=== PATIENT | female | born 1970 | race Caucasian/White ===

== ENCOUNTER 2017-12-23 04:17 | Emergency (ER) | payer SELFPAY ==
[2017-12-23] VITALS (7 sets, daily range): BP systolic 100–123; BP diastolic 62–84; PULSE 68–88; RESP 14–18; TEMP 36.8; O2SAT 95–98; BMI 35.5
--- NOTE | 2017-12-23 04:33 | RAD_ITS ---
STUDY: X-RAY CHEST REASON FOR EXAM: Female, 47 years old. Chest pain started at 12:30 last night, radiation to neck and left arm. TECHNIQUE: PA and lateral views of the chest. COMPARISON: 07/07/2014 FINDINGS: There are superimposed monitor leads. The lungs are clear and expanded. There is no demonstrated pleural abnormality. Normal size heart. Normal mediastinum and acleb. Normal visualized pulmonary arteries. Normal visualized aortic arch and descending thoracic aorta. Normal visualized thoracic spine. Normal visualized ribs, clavicles, and shoulders. There is no demonstrated abnormality of the visualized soft tissue structures of the upper abdomen. RAD/Chest PA and Lateral IMPRESSION: No acute cardiopulmonary disease. No significant interval change. Electronically Signed: Kelly Prasad MD at 5:04 EDT , Service support ,
--- NOTE | 2017-12-23 04:33 | EKG12_ITS ---
Test Reason : REPEAT-CP Blood Pressure : / mmHG Vent. Rate : 066 BPM Atrial Rate : 066 BPM P-R Int : 172 ms QRS Dur : 076 ms QT Int : 390 ms P-R-T Axes : 035 027 046 degrees QTc Int : 408 ms Sinus rhythm with Premature atrial complexes Otherwise normal ECG Confirmed by MARY US, ZOYA ([id number]), health editor YFN SOSA ([id number]) on 12/27/2017 1:46:23 PM Referred By: DAVID Confirmed By:ZOYA HERNANDEZ MD
--- NOTE | 2017-12-23 04:34 | ED.VISSUMM ---
- ER Visit Summary Date of Service: 12/23/17 Chief Complaint: Left sided chest pain History of Present Illness: The patient is a 47 F who presents for 4 hours of left-sided chest pain. Pain started at rest and is sharp, in the left upper chest radiating into the left neck. No history of injury or exertion. Pain has become more continuous and worse. It is worse with breathing or laying on the left side. Improved by remaining still. No associated nausea, vomiting, shortness of breath or fever. Patient has not had pain like this before. No history of coronary artery disease, DVT or PE. No recent travel or surgery. Patient is not a smoker. No hormone use. History of hysterectomy and partial thyroidectomy. Physical Examination: Vital signs: afebrile, hemodynamically stable, no hypoxia on room air General: well nourished, well developed, in no distress Skin: warm, dry, no rash, no pallor HEENT: normocephalic and atraumatic; PERRL, EOMI, moist mucous membranes Cardiovascular: regular rate and rhythm without murmurs, no peripheral edema, 2+ pulses all distal extremities Respiratory: No increased work of breathing, lungs are clear to auscultation bilaterally, no rales, rhonchi or wheezing Abdominal: Abdomen is soft, nontender with normoactive bowel sounds, no guarding or rebound, no masses MSK: Moves all extremities, no deformities, normal strength Neuro: Awake and alert, oriented ?4. No facial droop, sensation and motor function intact and symmetric Test Results: Abnormal Lab Results 12/23/17 12/23/17 12/23/17 04:30 04:30 04:30 WBC 8.3 RBC 5.12 Hgb 14.4 Hct 43.9 MCV 85.7 MCH 28.1 MCHC 32.8 RDW 13.1 RDW Differential 41.2 Plt Count 191 MPV 10.4 Immature Gran % (Auto) 0.200 Neut % (Auto) 57.0 Lymph % (Auto) 32.3 [place] % (Auto) 8.6 Eos % (Auto) 1.8 Baso % (Auto) 0.1 Absolute Neuts (auto) 4.7 Absolute Lymphs (auto) 2.69 Total Counted Not Reportable D-Dimer Quant (PE/DVT) 1.11 H* Sodium 142 Potassium 3.9 Chloride 108 H Carbon Dioxide 25.0 Anion Gap 9 BUN 15 Creatinine 0.95 Estim Creat Clear Calc 70.01 Est GFR (MDRD) Af Amer 82 Est GFR (MDRD) Non-Af 68 BUN/Creatinine Ratio 15.8 Glucose 90 Calcium 8.7 Troponin I < 0.02 Clinical Impression(s) from Imaging Studies Chest X-Ray 12/23/17 04:33 IMPRESSION: No acute cardiopulmonary disease. No significant interval change. Electronically Signed: Kelly Prasad MD at 5:04 EDT , Service support , Chest CTA 12/23/17 05:04 IMPRESSION: No demonstrated pulmonary embolism, aneurysm, leak or arterial dissection on submitted images with limitations as above. No pulmonary edema, congestive heart failure or confluent pneumonia. Nodular right thyroid lobe. This can be further assessed with ultrasound. Previous thyroid ultrasound 05/2013 describes a largest nodule of 1.1 x 0.9 x 0.6 cm. Electronically Signed: Kelly Prasad MD at 5:36 EDT , Service support , Emergency Department Course and Treatment: Patient presents with left-sided chest pain with no reproducible tenderness with palpation, no rash concerning for zoster. Because of the pleuritic nature of the pain, d-dimer was performed. Chest x-ray performed showing no infiltrates or acute process. EKG showed a sinus rhythm without ischemic changes and occasional PAC. Troponin negative. No leukocytosis or electrolyte derangements. D-dimer elevated at 1.11. CTA of the chest was performed, and showed no pulmonary emboli including in the main pulmonary arteries or the peripheral arteries, although the sensitivity of the study was limited due to suboptimal contrast bolus. She was given aspirin on initial presentation. Patient had been ordered morphine for her chest pain but declined it. On reevaluation, patient stated that the sharp pain had worsened, however she still did not want any pain medication. We discussed that her workup had thus been unremarkable. Patient agreed to a 3-hour delta EKG and troponin. Patient was still having intermittent chest pain and thus was given NTG which had no effect on her pain. Patient had improvement of her pain while waiting for the 3 hour delta troponin, with the pain becoming dull and moving into the lateral left chest/axilla. No other symptoms. Second EKG was unchanged from the first 1, showing a sinus rhythm with no ischemic changes. Discussed with patient that if the troponin was negative, the patient would have less than 1% risk of major adverse cardiovascular event in the next 30 days. Patient will be discharged home if the troponin is negative. We discussed the anti-inflammatories would be the best treatment for her chest pain if no concerning findings on the troponin. Patient agreed with this plan. Troponin will be followed up by the day physician and final disposition pending result. Treatment Plan: [] Disposition: [] Impression: left sided chest pain This note was generated with [employer] dictation software. It may contain incorrect words, spelling, and punctuation that were not noted in review of the chart prior to signing ED Disposition - Plan for ED Patient: Chief Complaint: Chest Pain Referrals: Care Physician,No Primary [Primary Care Provider] -
[2017-12-23] MEDS: Aspirin 81 MG TAB.CHEW 324 MG PO (04:41)
[2017-12-23 04:52] LABS: Absolute Lymphocyte Count 2.69 X10^3/ul (0.83-4.51); Absolute Neutrophil Count 4.7 X10^3/uL (2.0-7.7); Basophil# 0.01 X10^3/uL; Basophil% 0.1 % (0-1); Eosinophil# 0.15 X10^3/uL; Eosinophils% 1.8 % (0-5); Hematocrit 43.9 % (37-47); Hemoglobin 14.4 g/dl (12.0-15.0); Lymphocyte # 2.69 X10^3/ul (4.0); Lymphocyte % 32.3 % (19-41); Mean Corp Hgb Conc 32.8 g/gl (32-36); Mean Corpuscular Hgb 28.1 pg (27.0-32.0); Mean Corpuscular Volume 85.7 fL (81-99); Mean Platelet Vol. 10.4 fl (6.2-12.0); Monocyte# 0.72 X10^3/uL; Monocyte% 8.6 % (0-10); Neutrophil # 4.74 X10^3/uL (2.7-7.7); Platelet Count 191 K/mm3 (150-450); RBC Distribution Width CV 13.1 % (11.6-14.6); RBC Distribution Width SD 41.2 fl (35.1-43.9); Red Blood Count 5.12 M/mm3 (4.2-5.4); White Blood Count 8.3 K/mm3 (4.4-11.0)
[2017-12-23 04:54] LABS: Anion Gap 9 (5-15); BUN 15 mg/dL (7-18); BUN/Creat Ratio 15.8 RATIO (10-20); Calcium,Total 8.7 mg/dL (8.5-10.1); Chloride 108 mmol/L (98-107); Creatinine, Serum 0.95 mg/dL (0.55-1.02); EST Glomerular Filtration Rate 68 mL/min (>60); Est Glom Filt Rate - Afr Amer 82 mL/min (>60); Estimated Creatinine Clearance 70.01 ml/min; Glucose 90 mg/dL (74-106); Potassium 3.9 mmol/L (3.5-5.1); Sodium Level 142 mmol/L (136-145)
[2017-12-23 04:56] LABS: POSITIVE COUNT NO; POSITIVE DIFFERENTIAL NO; POSITIVE MORPHOLOGY NO
[2017-12-23 05:03] LABS: D-Dimer Quantitative (DVT/PE) 1.11 FEU/ug/m (0.27-0.49)
--- NOTE | 2017-12-23 05:03 | ED.RN ---
LAB CALLED WITH CRITICAL LAB RESULTS. D DIMER .. DR. HERNANDEZ MADE AWARE. ORDERS TO BE PLACED
--- NOTE | 2017-12-23 05:04 | CT_ITS ---
STUDY: CTA CHEST REASON FOR EXAM: Female, 47 years old. Elevated d-dimer, chest pain since 12:30 with radiation to neck and left arm. RADIATION DOSAGE (If Supplied By Facility): CTDIvol = ( 8.38 ) mGy, DLP = ( 298.89 ) mGycm TECHNIQUE: The examination was performed with the intravenous administration of 100 ml of Isovue 370 contrast material. Post-processing of the angiographic images was performed, with multiplanar reformation and 3D reconstruction. Individualized dose optimization techniques were used for this CT. COMPARISON: X-ray 12/23/2017. 07/07/2014. FINDINGS: Nodular low-attenuations right thyroid lobe, largest measures 1.6 x 1.6 cm image 211 series 2. Left thyroid lobe is not visualized. Images obtained during systemic arterial carotid and pulmonary arterial assessment limiting the sensitivity for pulmonary embolic detection. Normal enhancement of the main pulmonary artery and right and left pulmonary arteries. Normal enhancement of the bilateral peripheral pulmonary arteries. There is no demonstrated pulmonary embolism. Normal thoracic aorta and visualized great vessels. There is no demonstrated aortic dissection. Normal heart and pericardium. Normal mediastinum. Normal hilar regions. Normal visualized trachea and bronchi. The lungs are well expanded. Normal pulmonary parenchyma. Normal pleura. Normal chest wall structures. Age-appropriate osseous structures. Normal visualized upper abdomen. CT/CTA Chest W/WO Contrast IMPRESSION: No demonstrated pulmonary embolism, aneurysm, leak or arterial dissection on submitted images with limitations as above. No pulmonary edema, congestive heart failure or confluent pneumonia. Nodular right thyroid lobe. This can be further assessed with ultrasound. Previous thyroid ultrasound 05/2013 describes a largest nodule of 1.1 x 0.9 x 0.6 cm. Electronically Signed: Kelly Prasad MD at 5:36 EDT , Service support ,
[2017-12-23] MEDS: 0.9% Normal Saline 1,000 ML 999 ML IV (06:10)
--- NOTE | 2017-12-23 07:22 | EKG12_ITS ---
Test Reason : CHEST PAIN Blood Pressure : / mmHG Vent. Rate : 082 BPM Atrial Rate : 082 BPM P-R Int : 156 ms QRS Dur : 076 ms QT Int : 374 ms P-R-T Axes : 047 028 038 degrees QTc Int : 436 ms Sinus rhythm with Premature atrial complexes Otherwise normal ECG Confirmed by MARY US, ZOYA ([id number]), editor news YFN SOSA ([id number]) on 12/27/2017 1:46:35 PM Referred By: DAVID Confirmed By:ZOYA HERNANDEZ MD
--- NOTE | 2017-12-23 07:38 | ED.DEP ---
ED Disposition - Plan for ED Patient: Disposition: Home or Assisted Living Chief Complaint: Chest Pain Instructions: ED Chest Pain Atypical Unkn Cause Referrals: Care Physician,No Primary [Primary Care Provider] - Kirti Zavala MD [STAFF PHYSICIAN] - 1-2 Days if not improving Additional Instructions: You may use over the counter anti-inflammatories such as ibuprofen or naproxen as needed for chest pain. Please follow up with the doctor on this paperwork to establish primary care. If you have any worsening of your condition or any new concerning symptoms, please return immediately to the emergency department for another evaluation.
== END 2017-12-23 08:52 | disposition home or self-care (01) ==
PROVIDERS: Emergency Provider Emergency Medicine
DX: R07.9 Chest pain, unspecified (principal); E04.1 Nontoxic single thyroid nodule; I49.3 Ventricular premature depolarization; R79.89 Other specified abnormal findings of blood chemistry; Z90.89 Acquired absence of other organs; Z90.710 Acquired absence of both cervix and uterus
CPT/HCPCS: 71046; 71275; 80048; 84484; 85025; 85379; 93005; 96360; 96361; 99285; J7030; Q9967; A4216

== ENCOUNTER → 2018-08-26 07:42 | Outpatient (CLI) | payer OTHER, SELFPAY ==
[2017-12-23 04:18] VITALS: BMI 35.5
--- NOTE | 2018-08-26 07:49 | US_ITS ---
STUDY: THYROID ULTRASOUND REASON FOR EXAM: Female, 47 years old. Left thyroidectomy, right thyroid nodule follow-up TECHNIQUE: Ultrasound evaluation of the thyroid was performed with real-time and static smiley-scale imaging. COMPARISON: 09/03/2017 FINDINGS: RIGHT LOBE: The right lobe of the thyroid gland measures 6.6 x 2.5 x 1.6 cm. There is a heterogeneous echotexture. Diffuse heterogeneity of the right thyroid lobe with multiple hypoechoic nodules identified. Some of the nodules demonstrate cystic transformation. The largest cystic nodule measures 2.9 x 1.3 x 1.9 cm and previously measured 2.4 x 2.1 x 1.4 cm. Nodule has eccentric, mural nodularity with vascular flow. There is also increased size of cystic/solid nodule in the deep mid right thyroid lobe measuring 1.2 x 1.5 x 1.0 cm where as in the prior study measured 1.0 x 1.2 x 0.7 cm. Additional smaller nodules are similar in size and appearance when measured in a similar fashion on both studies and compared side by side. LEFT LOBE: Surgically absent. ISTHMUS: The isthmus measures 3 mm. The regional lymph nodes are normal. US/Thyroid IMPRESSION: 1. Left thyroidectomy. 2. Multiple right thyroid lobe nodules. INCREASED size of dominant solid/cystic nodules, as compared to prior study. Electronically Signed: Simón Goyal MD at 7:39 EST , Service support ,
== END ==
PROVIDERS: Referring Provider Surgery; Visit Provider Surgery
DX: E04.1 Nontoxic single thyroid nodule (principal)
CPT/HCPCS: 76536

== ENCOUNTER → 2018-09-16 11:10 | Outpatient (CLI) | payer OTHER, SELFPAY ==
[2018-08-30 07:59] VITALS: BMI 35.5
--- NOTE | 2018-09-16 11:12 | RAD_ITS ---
HISTORY: PAIN COMPARISON: None FINDINGS: XR left knee 4 views with weightbearing No fracture or acute osseous abnormality. Minor narrowing of the tibiofemoral medial compartment. The lateral joint space compartment and patellofemoral joint space appear preserved. Small fabella. No bony erosions. Small effusion. RAD/Knee 4 or More Views IMPRESSION: Left knee small effusion with minor narrowing of the medial compartment. Otherwise negative. at 0412 Reported and signed by: Blaise Inman MD Electronically Signed: Blaise Inman, at 4:11 EST Tel , Service support ,
--- NOTE | 2018-09-16 11:12 | RAD_ITS ---
HISTORY: PAIN COMPARISON: None FINDINGS: XR 4 views right knee with weightbearing No fracture or acute disease. Normal alignment. Minor narrowing of the tibiofemoral medial compartment the lateral joint space compartment and patellofemoral joint space appears preserved. No joint effusion. As visualized, the soft tissues are negative. RAD/Knee 4 or More Views IMPRESSION: 1. Minor narrowing of the medial compartment, right knee. Otherwise negative exam. No significant arthritis. at 0415 Reported and signed by: Blaise Inman MD Electronically Signed: Blaise Inman, at 4:14 EST Tel , Service support ,
== END ==
LOC: HPRAD 11:11
PROVIDERS: Referring Provider Physician Assistant; Visit Provider Physician Assistant
DX: M25.561 Pain in right knee (principal); M25.562 Pain in left knee
CPT/HCPCS: 73564

== ENCOUNTER → 2018-11-24 12:06 | Outpatient (CLI) | payer OTHER, SELFPAY ==
[2018-09-19 08:44] VITALS: BMI 35.5
--- NOTE | 2018-11-24 12:08 | BI_ITS ---
MAMMOGRAPHY - BILATERAL SCREENING REASON FOR EXAM: Female, 48 years old. Routine annual screening examination. PERTINENT HISTORY: Non-contributory. TECHNIQUE: Digital bilateral breast kylie (3D mammographic acquisition) in the CC and MLO projections. 2-D mediolateral oblique (MLO) and craniocaudad (CC) views of both breasts were obtained. CAD: Full Field Digital Mammography with Computer Added Detection was performed. COMPARISON: Comparison is made with prior study dated October 19, 2016 and October 21, 2015. FINDINGS: Breast Composition: There are scattered areas of fibroglandular density. There are no dominant masses or suspicious calcifications. No other significant abnormalities are identified. There has been no significant change since the prior study. BI/SCREENING MAMM (CAD), BILAT IMPRESSION: Stable bilateral screening mammogram. Yearly follow-up mammogram recommended. (A) ASSESSMENT CATEGORY: BIRADS Category 1: Negative. A letter regarding these results will be sent to the patient by the facility within 30 days. Approximately 10% of breast cancers are not detected by mammography. A normal mammogram should not delay biopsy of a clinically suspicious abnormality. [id number] Electronically Signed: Oz Osullivan, at 13:27 EDT , Service support ,
== END ==
PROVIDERS: Referring Provider Obstetrics & Gynecology; Visit Provider Obstetrics & Gynecology
DX: Z12.31 Encounter for screening mammogram for malignant neoplasm of breast (principal)
CPT/HCPCS: 77063; 77067

== ENCOUNTER → 2020-03-12 07:51 | Outpatient (CLI) | payer BC, SELFPAY ==
[2019-10-13 08:40] VITALS: BMI 35.5
--- NOTE | 2020-03-12 07:55 | US_ITS ---
STUDY: THYROID ULTRASOUND REASON FOR EXAM: Female, 49 years old. History of left thyroidectomy, known nodules, follow-up study TECHNIQUE: Ultrasound evaluation of the thyroid was performed with real-time and static smiley-scale imaging. COMPARISON: Multiple recent studies, the most recent from 08/26/2018 FINDINGS: RIGHT LOBE: The right lobe of the thyroid gland measures 7.5 x 2.8 x 2.2 cm. There is a heterogeneous echotexture. Stable simple and complex cysts noted in the right lobe largest of them measure 1.0 x 1.5 x 0.7 cm. LEFT LOBE: Surgically absent ISTHMUS: The isthmus measures 0.6 cm. There is a solid 1.1 x 1.1 x 0.7 cm hypoechoic nodule in the isthmus which is new since the previous study. Since this nodule is new since the previous study, further evaluation with thyroid uptake study is recommended to assess the uptake characteristics. The regional lymph nodes are normal. US/Thyroid IMPRESSION: New 1.1 x 1.1 x 0.7 cm solid hypoechoic isthmus nodule. Recommend thyroid uptake study to assess uptake characteristics. Stable enlarged right thyroid lobe with multiple stable simple and complex cystic nodules. Electronically Signed: Kurtis Le MD at 11:07 EDT , Service support ,
== END ==
PROVIDERS: Referring Provider Surgery; Visit Provider Surgery
DX: E04.2 Nontoxic multinodular goiter (principal)
CPT/HCPCS: 76536

== ENCOUNTER → 2020-07-10 | Outpatient (CLI) | payer BC, SELFPAY | END | disposition home or self-care (01) | LOC: LABSPEC 10:24 | PROVIDERS: Referring Provider Physician Assistant Surgical; Visit Provider Physician Assistant Surgical | DX: Z20.828 Contact with and (suspected) exposure to other viral communicable diseases (principal) | CPT/HCPCS: 87635; U0003 ==

== ENCOUNTER 2020-08-26 13:00 | Outpatient (RCR) | payer BC, SELFPAY ==
[2020-03-15 13:56] VITALS: BMI 35.5
--- NOTE | 2020-07-08 08:54 | HP.PTEVAL_ITS ---
Patient's Visit Information CARLOS MANUEL CARSON is a 49 year old F referred to Physical Therapy by Dr. Rafa Young MD with a diagnosis of DJD B Knees. Date of Evaluation: 07/08/20 Physical Therapist: Rashawn Sullivan, FINAT, OCS, CSCS - Visit Plan Frequency: 2x /Week Duration: 2-4 Weeks Plan: 2x/week for 4 weeks for start with aquatic therapy for B hip and knee strength and quad stretching progressing to I pool or home strenghening and stretching ex program depending on patients needs and desires. - Subjective Knee pain long standing but worse and it is keeping her up at night in L knee but both hurt. L knee to 10/10 sometimes with walking and a little bit at rest usually. R knee is comfortable and gets to 4/10 with bending it under crease. Sleep is interrupted. Wakes her up and is uncomfortable. Tylenol at night sometimes. 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 Sits during day mostly and on feet for a few hours at night before bedtime. Knees are uncomfortable but can do what she needs to at work. Live with sons in one story with two steps into from garage and can do them holding onto sides. Basic ADLs getting done, hurts. No real hobbies. No regular exercises outside of walking which hurts L knee. - Pain L knee Pain Intensity (Out of 10): 4 Pain Intensity Range: 0, 4, 10 - Objective Walks I with obvious L antalgia today, mild pain. Steps reciprocally needing railing up and down. Trasnfers I. Patella stiff B, quad very tight B qith 3 inches from buttock in prone and pain at end range. AROM B knees 110 flexion with end range pain. 0 ext B. reflexes 2/3 patella and achilles B. Sensation LE WNL to gross light touch. Strength hip rotations and abd and ext 3/5, flexi on 3+, knee ext 4- and HSC 4/5. ankle MMT 4/5 without pain. - B bounce home, + L patellar grind, + L knee scour. Tender to palpation medial joint line max on L and min on R at both knees. - Goals Goal 1:: Patient have pain 0-2/10 at most in B knees and tolerable to sleep through the night. Goal 2:: Pt score 50/80 on LEFS to minimize future problems and maximize mobility Goal Time Frame: 4-6 Weeks Goal 3:: I approp HEP to minimize future problems. Goal Time Frame: 4-6 Weeks - Rehabilitation Potential Physical Therapy Diagnosis: DJD B Knees Rehabilitation Potential: Fair - Anticipated Interventions Patient/Client Instruction: Educate patient on: Condition, Plan of Care For the Purpose of:: To decrease pain, To improve muscle performance and motor function, To improve ability of physical actions for home/community/work/leisure, To improve gait and locomotor functions Therapeutic Exercise to Include: Strength training, Flexibilty training, Neuromotor development, In an aquatic setting, Passive ROM, Active ROM For the Purpose of:: To decrease pain, To improve muscle performance and motor function, To increase tolerance to activity/condition/position, To improve ability of physical actions for home/community/work/leisure Manual Therapy Techniques to Include: Soft tissue mobilization For the Purpose of:: To decrease pain, To increase ROM Thank you for the opportunity to evaluate your patient. For Medicare and Medicare HMO plans, please review the plan of care and approve it. It will need to be FAXED BACK to us at [phone] for Medicare purposes. For Medicare only, by signing this I certify the plan of care. Please let me know if there are questions or concerns regarding this plan of care. Physician Signature: Date:
--- NOTE | 2020-08-09 10:51 | HP.PTREVAL ---
Dr. Rafa Young MD, It has been my pleasure to treat CARLOS MANUEL CARSON over the last 4 visits for DJD B Knees. Please see the progress note below for an update on the physical therapy plan of care! Subjective: Hard time getting into PT due to work schedule. Trying to do pool stuff at home. Not feeling much different. Pain this week to 10/10 with lying in bed inside of L knee and posterior R knee. To doctor in August. Work schedule is getting in way of treatment, works 9-5 and cannot get off. 3 visits in water were OK, flet the same but learned alot. Pt wants reschedule Objective/Function: pt apologetic for missing appointments but believes she can be more consistent over the next two weeks and then will join and continue I. Plan Plan: 2x/week for 2 weeks to [place] POC of LE strength, calorie burning, gneeral strength in the pool and progress to membership via open swim after 4 visits with list. Extending POC due to lack of attendance lately by two weeks with same goals and prognosis. Goals Goal 1:: Patient have pain 0-2/10 at most in B knees and tolerable to sleep through the night. Goal 2:: Pt score 50/80 on LEFS to minimize future problems and maximize mobility Goal Time Frame: 4-6 Weeks Goal 3:: I approp HEP to minimize future problems. Goal Time Frame: 4-6 Weeks Anticipated Interventions Patient/Client Instruction: Educate patient on: Condition, Plan of Care For the Purpose of:: To decrease pain, To improve muscle performance and motor function, To improve ability of physical actions for home/community/work/leisure, To improve gait and locomotor functions Therapeutic Exercise to Include: Strength training, Flexibilty training, Neuromotor development, In an aquatic setting, Passive ROM, Active ROM For the Purpose of:: To decrease pain, To improve muscle performance and motor function, To increase tolerance to activity/condition/position, To improve ability of physical actions for home/community/work/leisure Manual Therapy Techniques to Include: Soft tissue mobilization For the Purpose of:: To decrease pain, To increase ROM Please do not hesitate to contact me at [phone] by phone or if you have questions or concerns regarding this new plan of care! Sincerely, Rashawn Sullivan, DPT, OCS, CSCS
--- NOTE | 2020-08-26 13:27 | HP.PTDCSUM_ITS ---
It has been my pleasure to treat CARLOS MANUEL CARSON referred by Dr. Rafa Young MD, with the diagnosis of DJD B Knees for a total of 9 visit(s). Discharge Date: 08/26/20 Please see the following information for a summary of their discharge status. Subjective: Going OK. Not feeling much better overall. [place] pretty good after having two days in a row having less pain and limping less. The weekend was not bad. Normal pain is 4-10/10. Sleeps normal 8 hours on weekend but has 5/10 pain. Sleep is OK. Back to doctor on Wednesday morning. May try gel injections. May need surgery eventually. Wants to follow up with doctor and do water therapy on own for next 6 months and see how it goes. Knows the water ex and can continue on her own. L knee Pain Intensity (Out of 10): 0 RLE Pain Intensity (Out of 10): 0 LLE Pain Intensity (Out of 10): 0 % Improvement: 30 Objective/Function: ROM B knees WFL, strength 4/5 knee ext B with R knee pain. Steps are reciprocal with one rail without limping. Pt doing well. Pt still has pain daily and will discuss this with doctor but feels like she wants to try adn manage it (4-10/10) with water ex I vs further doctoring. Goal 1:: Patient have pain 0-2/10 at most in B knees and tolerable to sleep through the night. Goal Progress: Progressing Goal 2:: Pt score 50/80 on LEFS to minimize future problems and maximize mobility Goal Progress: Progressing Goal 3:: I approp HEP to minimize future problems. Goal Progress: Goal Met Plan: d/c to I water membership to continue 3x/week. Discharge Comments: Pt to [facility] via membership in the pool. If there are questions or concerns regarding this patient's physical therapy, please feel free to call me at [phone]. Thank you for the referral of this patient. Sincerely, Rashawn Sullivan, DPT, OCS, CSCS
== END 2020-08-26 19:00 | disposition home or self-care (01) ==
LOC: PT 13:00
PROVIDERS: Referring Provider Orthopaedic Surgery; Visit Provider Orthopaedic Surgery
DX: M17.0 Bilateral primary osteoarthritis of knee (principal)
CPT/HCPCS: 97113; 97161; 97164

== ENCOUNTER → 2020-12-03 12:05 | Outpatient (CLI) | payer BC, SELFPAY ==
[2020-11-04 11:29] VITALS: BMI 39.4
--- NOTE | 2020-12-02 09:15 | ASPSI_PTH ---
PATIENT: CARLOS MANUEL CARSON LOC: [facility] U#:[id number] AGE/SX: 54/F ROOM: RE12/03/[address]: Dr. Anthony Kent MD : 1970 BED: DIS: SPEC #: [id number] RECD: 12/03/20 11:47 STATUS: ÁNGELA REDereck #: [id number] CHANELLE: 12/02/20 09:[address]: Anthony Kent DEPT: CYTOLOGY RECD BY: Arleth Salazar ENTERED: 12/03/20 13:03 SP TYPE: KAYLA KRUSE DR: Dr. Ernestina Santo, Tissues: A - Thyroid gland, NOS B - Thyroid gland, NOS Procedures: Surgery Specimen Level IV Cytospin Fluid Cytology Other HEADER OPERATION: Ultrasound-guided fine needle aspiration of right thyroid and right thyroid cyst aspiration PRE-OP DIAGNOSIS: Thyroid nodule TISSUE SUBMITTED: A - Right thyroid FNA x12 slides, B - Right thyroid cyst aspirate DIAGNOSIS CYTOLOGY A. Right thyroid, ultrasound-guided FNA (smears): Consistent with benign follicular/colloid nodule with cystic changes. Adequate for evaluation. See comment. B. Right thyroid cyst fluid, ultrasound-guided FNA (cytospin and cell block): Consistent with benign cyst contents. See cytology study and comment. SJ:rg 12/04/2020 COMMENT Correlation with clinical, radiologic findings and appropriate follow up are necessary. Please make reference to previous specimens ([id number]) FNA, right thyroid nodule with diagnosis of negative, consistent with colloid nodule and FNA, right thyroid isthmus with diagnosis of negative, consistent with cystic colloid nodule and ([id number]) FNA, right thyroid nodule with diagnosis of negative, consistent with colloid nodule and chronic inflammation. CYTOLOGY STUDY Slides are reviewed. B. The specimen consists of numerous macrophages and a few clusters of benign follicular cells. CYTOLOGY GROSS A - Received are 12 smears labeled with the patient's name and designated per the requisition as right thyroid. Submitted for staining. B - Received is 50 ml of brown cloudy fluid labeled with the patient's name and and designated per the requisition as right thyroid cyst. Submitted for cytology preparation including cell block. / isha 12/03/20 TC:5 CPT: 10012, 86485, 98963
== END ==
LOC: LABSPEC 12:08
PROVIDERS: PCP Internal Medicine; Referring Provider Surgery; Visit Provider Surgery
DX: E04.1 Nontoxic single thyroid nodule (principal)
CPT/HCPCS: 88108; 88161; 88305

== ENCOUNTER → 2021-05-02 | Outpatient (CLI) | payer BC, SELFPAY | END | disposition home or self-care (01) | LOC: LABSPEC 10:09 | PROVIDERS: PCP Internal Medicine; Visit Provider Physician Assistant Surgical | DX: Z20.822 Contact with and (suspected) exposure to COVID-19 (principal) | CPT/HCPCS: 87635; U0005; U0003 ==

== ENCOUNTER 2023-03-27 11:52 | Emergency (ER) | payer OTHER, SELFPAY ==
[2023-03-27 11:53] VITALS: BP 134/77; PULSE 76; RESP 14; TEMP 36.6; O2SAT 96; BMI 40.4
--- NOTE | 2023-03-27 12:03 | CT_ITS ---
STUDY: CT ABDOMEN AND PELVIS WITHOUT CONTRAST REASON FOR EXAM: Female, 52 years old. Right flank pain RADIATION DOSAGE (If Supplied By Facility): CTDIvol = ( 19.78 ) mGy, DLP = ( 978.32 ) mGycm TECHNIQUE: Transaxial images were obtained from the dome of the diaphragm to the symphysis pubis without oral contrast, and without intravenous contrast. Sagittal and coronal images were reconstructed. Individualized dose optimization techniques were used for this CT. COMPARISON: 2010 FINDINGS: The visualized lung bases are unremarkable. The visualized portions of the heart are within normal limits. Normal liver. Normal gallbladder and extrahepatic biliary system. Normal spleen. Normal pancreas. Normal bilateral adrenal glands. There is right-sided hydronephrosis and hydroureter. Findings due to a 3.4 mm stone in the proximal right ureter seen on axial image 82, and coronal reconstructed image 61. There are punctate nonobstructing right renal stones. No suspicious mass lesion. Left kidney is free of obstructive uropathy or mass lesion. Normal visualized stomach. Normal small intestine. Normal colon. The appendix is visualized and appears normal. Appendix seen on coronal recon images 45 through 56 Normal abdominal aorta. Normal inferior vena cava. Normal retroperitoneum. Bladder is incompletely distended Normal abdominal wall. Normal osseous structures. CT/Abdomen/Pelvis without Cont IMPRESSION: 3.4 cm calcification in the proximal right ureter causing hydronephrosis and hydroureter without significant perinephric or periureteral inflammatory stranding Punctate nonobstructing right renal stones No free intraperitoneal fluid, air, or suspicious adenopathy, normal appendix visualized Electronically Signed: Kurtis Le MD at 13:15 EDT ,
--- NOTE | 2023-03-27 12:05 | EX.ED.DYSGE1 ---
HPI <REYNALDO Weinberg - Last Filed: 03/27/23 13:24> History of Present Illness Chief Complaint: Back Narrative Narrative: 52-year-old female developed right lower quadrant abdominal pain this morning. 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 However then the pain started radiating to the right flank and became more severe. Nothing makes it better or worse. She has no fever, chills, nausea, vomiting, or urinary symptoms. She has a normal daily bowel movement. No history of kidney stones. PFSH <REYNALDO Weinberg - Last Filed: 03/27/23 13:24> PFS Medical History (Updated 04/04/23 @ 00:01 by Ahmet Pool) Hypothyroid Physical exam, pre-employment Home Medications naproxen 500 mg tablet (Naprosyn) 500 mg PO BID PRN pain #20 tabs 03/27/23 [Rx Last Taken Unknown] ondansetron 4 mg disintegrating tablet 4 mg PO Q8H PRN PRN Nausea #12 tabs 03/27/23 [Rx Last Taken Unknown] oxycodone-acetaminophen 5 mg-325 mg tablet (Percocet) 1 tab PO Q6H PRN pain 3 days #12 tabs 03/27/23 [Rx Last Taken Unknown] tamsulosin 0.4 mg capsule (Flomax) 0.4 mg PO DAILY #7 caps 03/27/23 [Rx Last Taken Unknown] Allergy/AdvReac Type Severity Reaction Status Date / Time No Known Allergies Allergy Verified 03/27/23 11:53 Surgical History History of hysterectomy History of partial thyroidectomy Social History (Updated 03/27/23 @ 12:18 by Maine Ybarra) household members: family Smoking Status: Never smoker alcohol intake: never substance use type: does not use ROS <REYNALDO Weinberg - Last Filed: 03/27/23 13:24> ROS ED ROS Narrative Constitutional: Negative for fever, chills, malaise. CVS: Negative for chest pain. Respiratory: Negative for shortness of breath, cough. GI: Positive for abdominal pain. Negative for nausea, vomiting, diarrhea, constipation, melena, hematochezia. : Negative for dysuria, hematuria or frequency. EXAM <REYNALDO Weinberg - Last Filed: 03/27/23 13:24> Physical Exam Narrative Exam Narrative: CONST: Patient sitting in no acute distress. EYES: Normal inspection. NECK: Normal inspection. RESP: No respiratory distress, CTAB. CVS: Regular rate and rhythm, no murmur, no gallop. ABD: Soft and nontender, no guarding or rebound, nondistended, no hepatosplenomegaly. Back: Normal inspection, mild right CVA tenderness. SKIN: Color normal, no rash, warm, dry, intact. EXTREMITIES: Normal appearance, no pedal edema. NEURO: Oriented x4. PSYCH: Normal affect. Const Vital Signs: 03/27/23 11:53 Temperature 97.8 F Temperature Source Temporal Pulse Rate 76 Respiratory Rate 14 Blood Pressure 134/77 H Blood Pressure Mean 96 Pulse Ox 96 Oxygen Delivery Method Room Air <Dr. Jyoti Peraza DO - Last Filed: 05/23/23 08:28> Physical Exam Const Vital Signs: 03/27/23 11:53 Temperature 97.8 F Temperature Source Temporal Pulse Rate 76 Respiratory Rate 14 Blood Pressure 134/77 H Blood Pressure Mean 96 Pulse Ox 96 Oxygen Delivery Method Room Air MDM <REYNALDO Weinberg - Last Filed: 03/27/23 13:24> MDM MDM Narrative Medical decision making narrative: Patient has right flank pain radiating to the RLQ abdomen. She appears well and nontoxic. Vital signs within normal limits. Her abdomen is soft and nontender and there is slight right CVA tenderness. Labs show normal white count and hemoglobin, normal electrolytes with creatinine of 1.04. Urinalysis shows blood and nitrite positive but there is no bacteria and she has no urinary symptoms so it will be cultured but there is no indication for acute antibiotics. CT shows right obstructive kidney stone approximately 3 to 4 mm with hydronephrosis. Report incorrectly stated centimeters but it's millimeters. Patient's pain is well controlled after 1 dose of Toradol she has comfortable going home. I prescribed Percocet, naproxen, Zofran, and Flomax and discussed return precautions. She was discharged in stable condition. ED attending interpretation of CT abdomen/pelvis shows a small obstructive kidney stone in the right proximal ureter with no significant hydronephrosis. Differential: Kidney stone, pyelonephritis, appendicitis, ovarian cyst among others I have personally performed a face to face assessment of the patient and have reviewed the TATI Note. I performed a substantive portion of the visit including all aspects of the following. My ortiz findings include: History is [patient presents to the emergency department complaint of pain that initially started in her right lower abdomen but now is more in her back on the right side. Patient states that she only has 1 ovary and that is on her right side when she ovulates sometimes she will have pain and initially that is what she thought this was. Now pain rated 7 out of 10 in her right back. She denies urinary symptoms of frequency or urgency. She denies hematuria. Patient denies any trauma to her back. She had no nausea or vomiting.] Exam is [CELSA HERNANDEZ. Cranial nerves II through XII grossly intact. TMs clear. Mucous membranes moist. No adenopathy. Cardiovascular-regular rate and rhythm without murmur or ectopy Lungs-clear to auscultation, chest wall stable without crepitus or subcu emphysema Abdomen-normoactive bowel sounds, soft, nontender, no rebound or rigidity, no peritoneal signs. Back exam-patient has CVA tenderness on the right. Negative straight leg raises. Deep tendon reflexes plus 2 out of 4 bilaterally at the patella and Achilles. Patient has normal L5 extension bilaterally. Normal sensation to light touch. Extremities-intact ?4, normal range of motion, normal pulses, atraumatic] Medical Decison Making [on my evaluation of the CT scan I do see a kidney stone in the right ureter proximally measuring approximately 2 mm. Patient's urine had blood in it but no other signs of infection although she was positive for nitrites. Urine culture was sent. We will not treat this as she is not having urinary symptoms otherwise. Patient will be discharged to home with urine strainers. Patient will be given a prescription for Naprosyn and [place]. Advised to follow-up with urology in 3 to 5 days. Patient advised to return if worsening pain, fever, vomiting, or condition should worsen anyway.] Other additions or changes: [None] Lab Data Attestation: I reviewed the patient's lab results. Labs: Laboratory Results - last 24 hr 03/27/23 03/27/23 12:20 12:54 WBC 9.4 RBC 5.27 Hgb 14.5 Hct 45.3 MCV 86.0 MCH 27.5 MCHC 32.0 RDW Std Deviation 39.6 RDW Coeff of Jayy 12.7 Plt Count 256 MPV 10.3 Immature Gran % (Auto) 0.300 Neut % (Auto) 72.3 H Lymph % (Auto) 19.3 [place] % (Auto) 6.6 Eos % (Auto) 1.2 Baso % (Auto) 0.3 Absolute Neuts (auto) 6.8 Absolute Lymphs (auto) 1.81 Nucleated RBC % 0 Sodium 139 Potassium 4.1 Chloride 107 Carbon Dioxide 28.0 Anion Gap 4 L BUN 14 Creatinine 1.04 H Estim Creat Clear Calc 60.58 Est GFR (MDRD) Af Amer 72 Est GFR (MDRD) Non-Af 60 BUN/Creatinine Ratio 13.5 Glucose 112 H Calcium 9.0 Urine Color Brown Urine Clarity Cloudy Urine pH 5.0 Ur Specific [place] 1.025 Urine Protein 100 H Urine Glucose (UA) Normal Urine Ketones 5 H Urine Occult Blood 250 H Urine Nitrite Positive H Urine Bilirubin 1 H Urine Urobilinogen 1 H Ur Leukocyte Esterase 100 H Urine RBC > 100 SEEN Urine WBC 0-5 SEEN Ur Squamous Epith Cells 0-5 SEEN Urine Bacteria 0 SEEN Urine Mucus 0 SEEN Radiography Diagnostic Testing: Clinical Impression(s) from Imaging Studies Abdomen/Pelvis CT 03/27/23 12:03 IMPRESSION: 3.4 cm calcification in the proximal right ureter causing hydronephrosis and hydroureter without significant perinephric or periureteral inflammatory stranding Punctate nonobstructing right renal stones No free intraperitoneal fluid, air, or suspicious adenopathy, normal appendix visualized Electronically Signed: Kurtis Le MD at 13:15 EDT , <Dr. Jyoti Peraza, DO - Last Filed: 05/23/23 08:28> [facility] Narrative Medical decision making narrative: Patient has right flank pain radiating to the RLQ abdomen. She appears well and nontoxic. Vital signs within normal limits. Her abdomen is soft and nontender and there is slight right CVA tenderness. Labs show normal white count and hemoglobin, normal electrolytes with creatinine of 1.04. Urinalysis ED attending interpretation of CT abdomen/pelvis shows a small obstructive kidney stone in the right proximal ureter with no significant hydronephrosis. Differential: Kidney stone, pyelonephritis, appendicitis, ovarian cyst among others I have personally performed a face to face assessment of the patient and have reviewed the TATI Note. I performed a substantive portion of the visit including all aspects of the following. My ortiz findings include: History is [patient presents to the emergency department complaint of pain that initially started in her right lower abdomen but now is more in her back on the right side. Patient states that she only has 1 ovary and that is on her right side when she ovulates sometimes she will have pain and initially that is what she thought this was. Now pain rated 7 out of 10 in her right back. She denies urinary symptoms of frequency or urgency. She denies hematuria. Patient denies any trauma to her back. She had no nausea or vomiting.] Exam is [HEENT-PERRLA, EOMI. Cranial nerves II through XII grossly intact. TMs clear. Mucous membranes moist. No adenopathy. Cardiovascular-regular rate and rhythm without murmur or ectopy Lungs-clear to auscultation, chest wall stable without crepitus or subcu emphysema Abdomen-normoactive bowel sounds, soft, nontender, no rebound or rigidity, no peritoneal signs. Back exam-patient has CVA tenderness on the right. Negative straight leg raises. Deep tendon reflexes plus 2 out of 4 bilaterally at the patella and Achilles. Patient has normal L5 extension bilaterally. Normal sensation to light touch. Extremities-intact ?4, normal range of motion, normal pulses, atraumatic] Medical Decison Making [on my evaluation of the CT scan I do see a kidney stone in the right ureter proximally measuring approximately 2 mm. Patient's urine had blood in it but no other signs of infection although she was positive for nitrites. Urine culture was sent. We will not treat this as she is not having urinary symptoms otherwise. Patient will be discharged to home with urine strainers. Patient will be given a prescription for Naprosyn and [place]. Advised to follow-up with urology in 3 to 5 days. Patient advised to return if worsening pain, fever, vomiting, or condition should worsen anyway.] Other additions or changes: [None] Lab Data Labs: Laboratory Results - last 24 hr 03/27/23 03/27/23 12:20 12:54 WBC 9.4 RBC 5.27 Hgb 14.5 Hct 45.3 MCV 86.0 MCH 27.5 MCHC 32.0 RDW Std Deviation 39.6 RDW Coeff of Jayy 12.7 Plt Count 256 MPV 10.3 Immature Gran % (Auto) 0.300 Neut % (Auto) 72.3 H Lymph % (Auto) 19.3 [place] % (Auto) 6.6 Eos % (Auto) 1.2 Baso % (Auto) 0.3 Absolute Neuts (auto) 6.8 Absolute Lymphs (auto) 1.81 Nucleated RBC % 0 Sodium 139 Potassium 4.1 Chloride 107 Carbon Dioxide 28.0 Anion Gap 4 L BUN 14 Creatinine 1.04 H Estim Creat Clear Calc 60.58 Est GFR (MDRD) Af Amer 72 Est GFR (MDRD) Non-Af 60 BUN/Creatinine Ratio 13.5 Glucose 112 H Calcium 9.0 Urine Color Brown Urine Clarity Cloudy Urine pH 5.0 Ur Specific [place] 1.025 Urine Protein 100 H Urine Glucose (UA) Normal Urine Ketones 5 H Urine Occult Blood 250 H Urine Nitrite Positive H Urine Bilirubin 1 H Urine Urobilinogen 1 H Ur Leukocyte Esterase 100 H Urine RBC > 100 SEEN Urine WBC 0-5 SEEN Ur Squamous Epith Cells 0-5 SEEN Urine Bacteria 0 SEEN Urine Mucus 0 SEEN Radiography Diagnostic Testing: Clinical Impression(s) from Imaging Studies Abdomen/Pelvis CT 03/27/23 12:03 IMPRESSION: 3.4 cm calcification in the proximal right ureter causing hydronephrosis and hydroureter without significant perinephric or periureteral inflammatory stranding Punctate nonobstructing right renal stones No free intraperitoneal fluid, air, or suspicious adenopathy, normal appendix visualized Electronically Signed: Kurtis Le MD at 13:15 EDT , Discharge Plan Triage Chief Complaint: Back ED Midlevel Provider: Shazia Hunt ED Provider: Jyoti Peraza Dx/Rx/DC Orders Clinical Impression: Renal calculus, right Instructions: ED Kidney Stone w/ Colic Prescriptions: New oxycodone-acetaminophen [Percocet] 5-325 mg tablet 1 tab PO Q6H PRN (Reason: pain) 3 Days Qty: 12 0RF ondansetron 4 mg tablet,disintegrating 4 mg PO Q8H PRN PRN (Reason: Nausea) Qty: 12 0RF tamsulosin [Flomax] 0.4 mg capsule 0.4 mg PO DAILY Qty: 7 0RF naproxen [Naprosyn] 500 mg tablet 500 mg PO BID PRN (Reason: pain) Qty: 20 0RF Primary Care Provider: Care Physician,No Primary Referrals: Ernestina Santo DO [Med Staff - College Professor] - Viri Bejarano MD [Med Staff - Active Staff] - 3-5 Days Activity Restrictions/Additional Instructions: Usually small kidney stones passing urine. I prescribed Percocet and naproxen for pain. Often people develop nausea/vomiting or Percocet can cause a side effect so I recommend taking Zofran as needed. Increase hydration at home and after this kidney stone passes to prevent reoccurrence. If symptoms worsen or pain is not manageable at home please return to the emergency room. Disposition Disposition: Home, Self Care Discharge Date/Time: 03/27/23 13:38
[2023-03-27] MEDS: 0.9% Normal Saline 1,000 ML 999 ML IV (12:14)
[2023-03-27] MEDS: Ketorolac 30 MG/ML Syringe IV (12:14)
[2023-03-27 12:33] LABS: Absolute Lymphocyte Count 1.81 X10^3/uL (0.83-4.51); Absolute Neutrophil Count 6.8 X10^3/uL (2.0-7.7); Basophil# 0.03 X10^3/uL; Basophil% 0.3 % (0-1); Eosinophil# 0.11 X10^3/uL; Eosinophils% 1.2 % (0-5); Hematocrit 45.3 % (37-47); Hemoglobin 14.5 g/dL (12.0-15.0); Lymphocyte # 1.81 X10^3/ul (0.83-4.51); Lymphocyte % 19.3 % (19-41); Mean Corpuscular Hgb 27.5 pg (27.0-32.0); Mean Platelet Vol. 10.3 fl (6.2-12.0); Monocyte# 0.62 X10^3/uL; Monocyte% 6.6 % (0-10); NRBC Flagged by Analyzer 0 % (0-5); Neutrophil # 6.78 X10^3/uL (2.7-7.7); Neutrophil % 72.3 % (47-70); Platelet Count 256 K/mm3 (150-450); RBC Distribution Width CV 12.7 % (11.6-14.6); RBC Distribution Width SD 39.6 fl (35.1-43.9); Red Blood Count 5.27 M/mm3 (4.2-5.4); White Blood Count 9.4 K/mm3 (4.4-11.0)
[2023-03-27 12:43] LABS: Anion Gap 4 (5-15); BUN 14 mg/dL (7-18); BUN/Creat Ratio 13.5 RATIO (10-20); Chloride 107 mmol/L (98-107); Creatinine, Serum 1.04 mg/dL (0.55-1.02); EST Glomerular Filtration Rate 60 mL/min (>60); Est Glom Filt Rate - Afr Amer 72 mL/min (>60); Estimated Creatinine Clearance 60.58 ml/min; Glucose 112 mg/dL (74-106); Potassium 4.1 mmol/L (3.5-5.1); Sodium Level 139 mmol/L (136-145)
[2023-03-27 13:00] LABS: Bacteria 0 SEEN /hpf (None Seen); Mucous, Urine 0 SEEN /hpf (<or=2+)
[2023-03-27 13:01] LABS: Color, Urine Brown (Yellow); Glucose, Dipstick Normal (Normal); Ketone-Dipstick 5 mg/dl (Negative); Leukocyte Esterase-Dipstick 100 /ul (Negative); Nitrite-Dipstick Positive (Negative); Occult Blood-Urine 250 /ul (Negative); Protein-Dipstick 100 mg/dl (Negative); Specific Gravity, Urine 1.025 (1.002-1.030); Urine Clarity Cloudy (Clear); Urine Urobilinogen 1 mg/dl (Normal)
[2023-03-27 13:03] LABS: Urine Bilirubin Dipstick 1 mg/dL (Negative)
[2023-03-27 13:08] LABS: Red Blood Cells-Urine > 100 SEEN /hpf (0-5); White Blood Cells 0-5 SEEN /hpf (0-5)
[2023-03-27 13:09] LABS: Squamous Epithelial Cells - UA 0-5 SEEN /hpf (5-10)
[2023-03-27 13:37] VITALS: RESP 16
== END 2023-03-27 13:38 | disposition home or self-care (01) ==
PROVIDERS: Physician Assistant; Emergency Provider Emergency Medicine; Visit Provider Emergency Medicine
DX: N20.1 Calculus of ureter (principal); E03.9 Hypothyroidism, unspecified; Z79.899 Other long term (current) drug therapy
CPT/HCPCS: 74176; 80048; 81001; 85025; 87086; 96361; 96374; 99283; J7030; A4216